=== PATIENT | female | born 1985 | race Two or more races ===

== ENCOUNTER 2018-02-23 11:43 | Emergency (ER) | payer SELFPAY ==
[2018-02-23] MEDS ORDERED: DIPH/PERTUSS(ACELL)/TETANUS VAC/PF 0.5 ML SYR (>=10YO) IM ONE (12:00)
--- NOTE | 2018-02-23 12:06 | ER Document Report ---
ED General - General Chief Complaint: Syncope Stated Complaint: POSSIBLE DOG BITE Time Seen by Provider: 02/23/18 11:54 - HPI Notes: Patient is a 32-year-old female with no significant past medical history who presents to the ED complaining of having 2 short syncopal episodes after being bitten the hand by a dog. Patient states that she looked at the blood and felt faint. This was a witnessed event and she did not hit her head. She regained consciousness within a few seconds. Her syncopal episodes happened within a short period time. Patient states that she is otherwise back to normal without any other concerns or complaints aside from the dog bite to left hand. Her last tetanus was just over 5 years ago. She denies any drug allergies. No other concerns or complaints. Denies any smoking, IV drug use, alcohol involvement. Denies any headache, fever, head injury, neck pain, changes in vision/speech/mentation/hearing, URI, sore throat, chest pain, palpitations, cough, shortness of breath, wheeze, dyspnea, abdominal pain, nausea/vomiting/ diarrhea, urinary retention, dysuria, hematuria, loss of control of bowel or bladder, numbness/tingling, muscle paralysis, or rash. - Related Data Allergies/Adverse Reactions: Penicillins Allergy (Verified 02/23/18 12:11) Hives Past Medical History - Social History Smoking Status: Never Smoker Family History: Reviewed & Not Pertinent Review of Systems - Review of Systems -: Yes All other systems reviewed and negative Physical Exam - Vital signs Vitals: Resp BP Pulse Ox 16 118/71 97 02/23/18 11:45 02/23/18 11:45 02/23/18 11:45 - Notes Notes: PHYSICAL EXAMINATION: accompanied by female nurse GENERAL: Well-appearing, well-nourished and in no acute distress. A&Ox4. Answers questions appropriately. HEAD: Atraumatic, normocephalic. Non-tender. No king sign EYES: Pupils equal round and reactive to light, extraocular movements intact, sclera anicteric, conjunctiva are normal. No raccoon eyes/entrapment. No nystagmus. ENT: EAC clear b/l. TM's intact b/l without erythema, fluid, or perforation. Nares patent and without discharge. oropharynx clear without exudates. No tonsilar hypertrophy or erythema. Moist mucous membranes. No sinus tenderness. No hemotympanum/CSF discharge. NECK: Normal range of motion, supple without lymphadenopathy. No rigidity. No midline tenderness. NEXUS negative. LUNGS: Breath sounds clear to auscultation bilaterally and equal. No wheezes rales or rhonchi. HEART: Regular rate and rhythm without murmurs, rubs, gallops. ABDOMEN: Soft, nontender, nondistended abdomen. No guarding, no rebound. No masses appreciated. Normal bowel sounds present. No CVA tenderness bilaterally. Musculoskeletal: Ext b/l: FROM to passive/active. Strength 5+/5. No deficits noted. No bony tenderness of extremities. + mild tenderness to the left palm s /p puncture wound soft tissue. Back: FROM to passive/active. Strength 5+/5. No vertebral point tenderness, stepoffs, or deformities. Extremities: No cyanosis, clubbing, or edema b/l. Peripheral pulses 2+. Capillary refill less than 2 seconds. NEUROLOGICAL: NIH 0. GCS 15. Cranial nerves grossly intact. Normal speech, normal gait. Normal sensory, motor exams. Reflexes 2+ b/l. GUSTAVO's negative. Pronator drift negative. Heel/cuellar, finger/nose wnl. Walking on heels/toes and heel to toe wnl. PSYCH: Normal mood, normal affect. SKIN: left hand: there is a 0.5cm puncture wound to the anterior lateral palm. there are also 3 abrasions to the posterior hand. Course - Re-evaluation Re-evalutation: 02/23/18 13:26 Patient is an afebrile, well-hydrated, 32-year-old female who presents to the ED with a dog bite to the left hand and episode of syncope. I suspect that the syncope is vasovagal as it occurred just after the pain stimulus and when she was looking at the blood. Vitals are otherwise acceptable without any significant tachycardia, tachypnea, or hypoxia. PE is otherwise unremarkable for any focal neurological deficits, neurovascular compromise, obvious tendon/ ligament rupture, obvious fracture/dislocation. X-ray was unremarkable for any acute pathology to left hand. NIH 0, GCS 15, cranial nerves grossly intact. EKG, CBC, CMP, hCG are all unremarkable for acute pathology. Tetanus was updated today. No other labs or imaging warranted at this time based on H&P. Low suspicion for any sepsis, meningitis, acute intracranial pathology, fracture , or other systemic emergent condition at this time. Patient is aware that she needs to monitor for any worsening symptoms and to seek medical attention immediately if so. I will be sending her home with a prescription for Keflex. Wounds were thoroughly irrigated and cleansed today with the wound dressing placed and wound instructions reviewed. Recheck with your PCM in 2-3 days. Return to the ED with any worsening/concerning symptoms otherwise as reviewed in discharge. Consider consult orthopedics. Patient is in agreement. Allergy to PCN- rash, reviewed cross-reactivity with keflex. - Vital Signs Vital signs: Temp Pulse Resp BP Pulse Ox 98.2 F 19 121/80 97 02/23/18 11:50 02/23/18 12:01 02/23/18 12:01 02/23/18 12:01 - Laboratory Result Diagrams: 02/23/18 12:30 02/23/18 12:30 Laboratory results interpreted by me: 02/23/18 12:30 Chloride 108 H Discharge - Discharge Clinical Impression: Dog bite of left hand Qualifiers: Encounter type: initial encounter Qualified Code(s): S61.452A - Open bite of left hand, initial encounter Episode of syncope Qualifiers: Syncope type: vasovagal syncope Qualified Code(s): R55 - Syncope and collapse Condition: Stable Disposition: HOME, SELF-CARE Instructions: Animal Bites ([facility]), Cephalexin ([facility]), Syncopal Episode ([facility]), Tetanus Immunization Given ([facility]) Additional Instructions: Keep the skin clean Wash with soap and water Daily wound dressing changes with triple antibiotic ointment Tylenol/ibuprofen if needed Take medication as directed Monitor for any worsening symptoms Recheck with your PCM in 2-3 days Consider consult with orthopedics if needed Return to the ED with any worsening symptoms and/or development of fever, headache, chest pain, palpitations, syncope, shortness of breath, trouble breathing, abdominal pain, n/v/d, abscess, purulent discharge, red streaks, worsening swelling, or other worsening symptoms that are concerning to you. Prescriptions: Cephalexin Monohydrate [Keflex 500 mg Capsule] 500 mg PO TID #21 capsule Referrals: JOSE SCHILLING DO [ACTIVE STAFF] - Follow up as needed
[2018-02-23] MEDS ORDERED: KETOROLAC TROMETHAMINE INJ/PF 30 MG/1 ML SDV IM ONE (12:10)
[2018-02-23 12:50] LABS: ABSOLUTE BASOPHILS # (AUTO) 0.1 10^3/uL (0.0-0.2); ABSOLUTE EOSINOPHILS # (AUTO) 0.2 10^3/uL (0.0-0.6); ABSOLUTE LYMPHOCYTES (AUTO) 2.2 10^3/uL (0.5-4.7); ABSOLUTE MONOCYTES (AUTO) 0.6 10^3/uL (0.1-1.4); BASOPHILS % (AUTO) 0.8 % (0-2); EOSINOPHILS % (AUTO) 3.1 % (0-6); HEMATOCRIT 38.4 % (36.0-47.0); HEMOGLOBIN 13.1 g/dL (12.0-15.5); MEAN CORPUSCULAR HEMOGLOBIN 32.1 pg (27.0-33.4); MEAN CORPUSCULAR HGB CONC 34.1 g/dL (32.0-36.0); MEAN CORPUSCULAR VOLUME 94 fl (80-97); MONOCYTES % (AUTO) 6.9 % (3-13); PLATELET COUNT 265 10^3/uL (150-450); RED BLOOD COUNT 4.09 10^6/uL (3.72-5.28); RED CELL DISTRIBUTION WIDTH 11.9 % (11.5-14.0); SEGMENTED NEUTROPHILS % (AUTO) 62.2 % (42-78); TOTAL CELLS COUNTED % (AUTO) 100 %
[2018-02-23 13:06] LABS: ALANINE AMINOTRANSFERASE 38 U/L (9-52); ALBUMIN 3.7 g/dL (3.5-5.0); ALKALINE PHOSPHATASE 43 U/L (38-126); ANION GAP 9 (5-19); ASPARTATE AMINO TRANSFERASE 28 U/L (14-36); BILIRUBIN,DIRECT 0.1 mg/dL (0.0-0.4); BILIRUBIN,TOTAL 1.2 mg/dL (0.2-1.3); BLOOD UREA NITROGEN 17 mg/dL (7-20); CALCIUM 8.7 mg/dL (8.4-10.2); CARBON DIOXIDE 24 mmol/L (22-30); CHLORIDE 108 mmol/L (98-107); GLUCOSE 95 mg/dL (75-110); POTASSIUM 4.5 mmol/L (3.6-5.0); SODIUM 140.9 mmol/L (137-145); TOTAL PROTEIN 6.5 g/dL (6.3-8.2)
--- NOTE | 2018-02-23 13:33 | RADIOLOGY REPORT (SQ) ---
EXAM DESCRIPTION: HAND LEFT 3 VIEWS COMPLETED DATE/TIME: 02/23/2018 1:16 pm REASON FOR STUDY: dog bite left hand COMPARISON: None. NUMBER OF VIEWS: Three views left hand. LIMITATIONS: None. FINDINGS: There is no acute or significant bone, joint or soft tissue abnormality. OTHER: No other significant finding. IMPRESSION: NORMAL STUDY. TECHNICAL DOCUMENTATION: JOB ID: [id number] Reading location - IP/workstation name: [email or web address]
[2018-02-23] MEDS ORDERED: HYDROCODONE/ACETAMINOPHEN 5-325 MG (6 TAB/ER DISP) PO PRN (13:36)
[2018-02-23 13:50] VITALS: BP 119/70
--- NOTE | 2018-02-24 03:06 | EKG REPORT ---
SEVERITY:- ABNORMAL ECG - SINUS RHYTHM LEFT ANTERIOR FASCICULAR BLOCK BORDERLINE T ABNORMALITIES, ANTERIOR LEADS : Confirmed by: Mihaela Shea MD 24-Feb-2018 03:05:39
== END 2018-02-23 13:50 | disposition home or self-care (01) ==
LOC: ER 11:43
DX: R55 Syncope and collapse (principal); S61.452A Open bite of left hand, initial encounter; W54.0XXA Bitten by dog, initial encounter; Y93.K9 Activity, other involving animal care; Z88.0 Allergy status to penicillin
CPT/HCPCS: 93005; 99285; 96372; 90471; 36415; 84703; 85025; 80053; 73130; 90715; 93010; J1885